=== PATIENT | male | born 1955 | race Caucasian/White ===

== ENCOUNTER 2020-07-30 14:30 | Inpatient (IN) | payer OTHER ==
[~2020-07-30] VITALS: Ht 177.8 cm; Wt 90.0 kg
[~2020-07-30 14:30] MED LIST: ATEN50TA41 PO; CHOL2000 PO; DOCU100T3 PO; LEVE100020 PO; LOVA10TA PO; MILK500C PO; MORP90CP PO; OXYC10TA6 PO
[2020-07-30] MEDS ORDERED: PLEASE ENTER HEIGHT AND WEIGHT MC SCH (15:00)
[2020-07-30] MEDS ORDERED: SODIUM CHLORIDE FLUSH 10ML SYR IVF ONE (15:00)
--- NOTE | 2020-07-30 15:11 | NUR ---
PT TRANSFERED FORM [facility] FROM EMS, ON 2 LPM O2 N/C. JAUNDICE FROM HEAD TO TOE, AND ABD DISTENDED, VSS, MED ALERT BRACLET INF GIVEN TO MD,
--- NOTE | 2020-07-30 15:17 | NUR ---
MED ALERT BRACLET STATES "TAKING OPIATES NO ANTIBICTICS EXCEPT PENICLLLIN THANK YOU " [phone]
[2020-07-30] MEDS ORDERED: SILD100T PO (15:22)
[2020-07-30] MEDS ORDERED: DOXE10CA PO (15:22)
[2020-07-30] MEDS ORDERED: OXYC10TA6 PO (15:22)
[2020-07-30] MEDS ORDERED: MORP-29 PO (15:22)
[2020-07-30] MEDS ORDERED: MELO15TA24 PO (15:22)
[2020-07-30] MEDS ORDERED: FLUT1BLS3 IH (15:23)
--- NOTE | 2020-07-30 15:33 | NUR ---
PT RESTING IN BED, SPOKE TO CURRY THE , SHE STATES SHE IS IN ROUTE, AND AWARE OF THE SITUATION
--- NOTE | 2020-07-30 15:38 | NUR ---
PRECEPTOR NOTE. PTS HOME MEDICATIONS WERE TAKEN TO PHARMACY AND DOUBLE VERIFIED WITH PHARMACIST. OXYCODONE COUNT WAS 71 WHOLE TABLETS AND 10 1/2 TABLETS. MORPHINE ER 18 WHOLE TABLETS. PT MADE AWARE MEDICATIONS ARE DOWN AT PHAMACY. RECIEPT LEFT WITH PT BELONGINGS.
[2020-07-30 15:43] LABS: MEAN CORPUSCULAR HEMOGLOBIN 35.9 pg (27.5-34.5); MEAN CORPUSCULAR HGB CONC 34.7 g/dL (33.2-36.2); MEAN PLATELET VOLUME 9.2 fL (7.4-10.4); PLATELET COUNT 113 x10^3/uL (130-400); RED BLOOD COUNT 4.22 x10^6/uL (4.38-5.82); RED CELL DISTRIBUTION WIDTH 16.2 % (9.4-14.8)
[2020-07-30] MEDS ORDERED: LIDOCAINE 1%, 10ML ONE (15:47)
[2020-07-30 15:48] LABS: ALANINE AMINOTRANSFERASE 75 U/L (12-78); ALBUMIN 2.2 g/dL (3.4-5.0); CALCIUM 8.3 mg/dL (8.5-10.1); CHLORIDE 90 mmol/L (98-107)
[2020-07-30 15:59] LABS: ALKALINE PHOSPHATASE 258 U/L (45-117)
[2020-07-30 16:02] LABS: INTERNATIONAL NORMALIZED RATIO 2.49 (0.93-1.1); PROTHROMBIN TIME 26.2 Seconds (9.6-11.5)
[2020-07-30 16:23] LABS: TOTAL PROTEIN 6.2 g/dL (6.4-8.2)
[2020-07-30 16:34] LABS: ANION GAP 15 mmol/L (5-15)
[2020-07-30 16:37] LABS: CREATININE 3.75 mg/dL (0.7-1.3)
[2020-07-30 16:40] LABS: BILIRUBIN,TOTAL 40.9 mg/dL (0.2-1.0)
--- NOTE | 2020-07-30 16:45 | NUR ---
PT BACK FROM CT
--- NOTE | 2020-07-30 16:49 | NUR ---
PRECEPTOR NOTE. IR NOTIFIED THIS RN THAT 4.7 LITERS WERE PULLED FROM PTS ABDOMEN AND SENT TO LAB. PRIMARY RN NOTIFIED.
[2020-07-30] MEDS ORDERED: NS + 40MEQ KCL 1,000 ML IV ONE (17:08)
[2020-07-30] MEDS ORDERED: MORPHINE SULFATE 4 MG/ML, 1ML ONE (17:08)
--- NOTE | 2020-07-30 17:29 | NUR ---
CONVERSATION WITH ADMITTING PROVIDER REGARDING PT NECKLACE THAT STATES NO ANTIBIOTICS EXCEPT PENICILLIN. PROVIDER SHOWN NECKLACE. CALLED TO CLARIFY ORDER OF ZOSYN WITH PROVIDER. PROVIDER SPOKE WITH TO CLARIFY. AT THIS POINT PROVIDER OK'D ZOSYN TO BE ADMIN
[2020-07-30] MEDS ORDERED: SODIUM CHLORIDE FLUSH 10ML SYR IVF PRN (17:30)
[2020-07-30] MEDS ORDERED: MORPHINE SULFATE 4 MG/ML, 1ML IVPush PRN (17:30)
--- NOTE | 2020-07-30 17:32 | NUR ---
pt in bed vss, no distress, iv k started
--- NOTE | 2020-07-30 17:36 | NUR ---
SPOKE WITH WARREN IN PHARMACY ON COMPATABILITY OF MEDS. PER WARREN THEY ARE COMPATIBLE
[2020-07-30] MEDS ORDERED: [UNRECOGNIZED DRUG - OTHER] IV SCH (18:00)
[2020-07-30] MEDS ORDERED: PROMETHAZINE 25 MG/ML, 1ML IM PRN (18:00)
[2020-07-30] MEDS ORDERED: HYDROmorphone 2 MG/ML, 1ML IVPush PRN (18:00)
[2020-07-30] MEDS ORDERED: ONDANSETRON 2MG/ML, 2ML IVPush PRN (18:00)
[2020-07-30] MEDS ORDERED: POTASSIUM CHLORIDE IV SCH (18:00)
[2020-07-30] MEDS ORDERED: MELATONIN 5 MG TABLET PO PRN (18:00)
[2020-07-30] MEDS ORDERED: BISACODYL 10 MG SUPP PR PRN (18:00)
[2020-07-30] MEDS ORDERED: POTASSIUM CHLORIDE 40 MEQ in SODIUM CHLORIDE 0.9% 1,000 ML IV ONE (18:00)
[2020-07-30] MEDS ORDERED: THIAMINE IV SCH (18:00)
[2020-07-30] MEDS ORDERED: POLYETHYLENE GLYCOL 17 GM PACKET PO PRN (18:00)
[2020-07-30] MEDS ORDERED: FOLIC ACID IV SCH (18:00)
[2020-07-30] MEDS ORDERED: DOCUSATE 100 MG CAPSULE PO PRN (18:00)
[2020-07-30] MEDS ORDERED: MVI ADULT IV SCH (18:00)
[2020-07-30 18:38] LABS: MD YES
[2020-07-30 18:42] LABS: BAND#(MANUAL) 2.21 x10^3/uL; BANDS%(MANUAL) 7 % (0-7); LYMPH#(MANUAL) 0.63 x10^3/uL (1-3.4); LYMPHS% (MANUAL) 2 % (22-44); MONOS#(MANUAL) 0.95 x10^3/uL (0.3-2.7); MONOS% (MANUAL) 3 % (2-9); SEG#(MANUAL) 27.81 x10^3/uL (1.8-6.8); SEGS% (MANUAL) 88 % (42-75)
[2020-07-30 18:46] LABS: <PLATELET ESTIMATE> DECREASED; <PLT MORPHOLOGY> NORMAL PLT MORPH; PMNS WITH VACUOLES 1+
[2020-07-30] MEDS: PIPERACILLIN/TAZO/PMX 2.25GM 50 ML IV SCH (19:03)
--- NOTE | 2020-07-30 19:24 | NUR ---
pt transfered to tele [phone]. report given to wally godinez. vss. no distress
[2020-07-30] MEDS ORDERED: ALBUMIN HUMAN 25% 100 ML IV ONE (19:30)
[2020-07-30] MEDS ORDERED: ALBUMIN HUMAN 25% 200 ML IV ONE (19:30)
[2020-07-30 19:42] VITALS: BP 111/67
[2020-07-30] MEDS: ALBUMIN HUMAN 25% 100 ML IV SCH (20:00)
[2020-07-30] MEDS: LACTULOSE 20 GM/30 ML UDC PO SCH ×2 (20:07→21:33)
[2020-07-30] MEDS: MIDODRINE 5 MG TABLET PO SCH (20:07)
[2020-07-30] MEDS: LEVETIRACETAM 500 MG TABLET PO SCH (20:07)
[2020-07-30] MEDS: LOVASTATIN 10 MG TABLET PO SCH (20:08)
[2020-07-30] MEDS: MULTIVITAMIN 1 TABLET PO SCH (20:08)
[2020-07-30] MEDS: OXYcodone IR 5MG TABLET PO PRN (20:08)
[2020-07-30] MEDS: RIFAXIMIN 550 MG TABLET PO SCH (20:09)
[2020-07-30 20:42] LABS: % IRON SATURATION 71 % (20-55); IRON LEVEL 70 mcg/dL (65-175); TOTAL IRON BINDING CAPACITY 98 mcg/dL (250-450)
[2020-07-30] MEDS: OCTREOTIDE 1,250 MCG in SODIUM CHLORIDE 0.9% 247.5 ML IV PRN (20:48)
[2020-07-30] MEDS ORDERED: DOXEPIN 10 MG CAPSULE PO SCH (21:00)
[2020-07-30] MEDS: D5 IV SCH (22:07)
[2020-07-30] MEDS: FOLIC ACID IV SCH (22:07)
[2020-07-30] MEDS: POTASSIUM CHLORIDE IV SCH (22:07)
[2020-07-30] MEDS: THIAMINE IV SCH (22:07)
[2020-07-30] MEDS: NACL IV SCH (22:07)
[2020-07-30 23:39] LABS: MICROSCOPIC AUTO
[2020-07-30 23:41] LABS: AMPHETAMINE SCREEN, URINE Negative (Negative); BARBITURATE SCREEN, URINE Negative (Negative); BENZODIAZEPINE SCREEN, URINE Negative (Negative); CANNABINOID SCREEN, URINE Negative (Negative); COCAINE SCREEN, URINE Negative (Negative); METHADONE SCREEN, URINE Negative (Negative); OPIATE SCREEN, URINE Positive (Negative); SODIUM,URINE RANDOM 6 mmol/L
[2020-07-31] MEDS: PIPERACILLIN/TAZO/PMX 2.25GM 50 ML IV SCH ×4 (01:39→20:39)
[2020-07-31 02:38] VITALS: BP 91/52
[2020-07-31] MEDS: ALBUMIN HUMAN 25% 100 ML IV SCH ×3 (05:38→17:14)
[2020-07-31] MEDS: OXYcodone IR 5MG TABLET PO PRN ×2 (05:44→17:06)
[2020-07-31 06:05] LABS: MEAN CORPUSCULAR HEMOGLOBIN 36.4 pg (27.5-34.5); MEAN CORPUSCULAR HGB CONC 34.8 g/dL (33.2-36.2); PLATELET COUNT 89 x10^3/uL (130-400); RED BLOOD COUNT 3.81 x10^6/uL (4.38-5.82)
[2020-07-31 06:15] LABS: ANION GAP 14 mmol/L (5-15); CALCIUM 7.4 mg/dL (8.5-10.1); CHLORIDE 95 mmol/L (98-107)
[2020-07-31 06:18] LABS: CREATININE 3.95 mg/dL (0.7-1.3)
[2020-07-31 06:43] LABS: MD YES
[2020-07-31 06:44] LABS: BAND#(MANUAL) 0.26 x10^3/uL; BANDS%(MANUAL) 1 % (0-7); LYMPH#(MANUAL) 1.03 x10^3/uL (1-3.4); LYMPHS% (MANUAL) 4 % (22-44); MONOS#(MANUAL) 1.03 x10^3/uL (0.3-2.7); MONOS% (MANUAL) 4 % (2-9); SEG#(MANUAL) 23.39 x10^3/uL (1.8-6.8); SEGS% (MANUAL) 91 % (42-75)
[2020-07-31 06:45] LABS: <PLATELET ESTIMATE> DECREASED; <PLT MORPHOLOGY> NORMAL PLT MORPH; ANISOCYTOSIS 1+
[2020-07-31 06:56] VITALS: BP 95/58
[2020-07-31] MEDS: LEVETIRACETAM 500 MG TABLET PO SCH ×2 (08:35→22:20)
[2020-07-31] MEDS: MULTIVITAMIN 1 TABLET PO SCH ×2 (08:35→22:16)
[2020-07-31] MEDS: LACTULOSE 20 GM/30 ML UDC PO SCH ×3 (08:35→22:20)
[2020-07-31] MEDS: RIFAXIMIN 550 MG TABLET PO SCH ×2 (08:35→22:16)
[2020-07-31] MEDS: MIDODRINE 5 MG TABLET PO SCH ×3 (08:36→22:16)
[2020-07-31] MEDS: CHOLECALCIFEROL 1,000 UNIT TABLET PO SCH (08:36)
[2020-07-31] MEDS: ATENOLOL 50 MG TABLET PO SCH (08:46)
[2020-07-31] MEDS: VILANTER INH SCH ×2 (09:00→15:36)
[2020-07-31] MEDS: FLUTICASONE INH SCH ×2 (09:00→15:36)
[2020-07-31] MEDS ORDERED: SENNA/DOCUSATE TABLET PO SCH (09:00)
[2020-07-31] MEDS: UMECLIDIN INH SCH ×2 (09:00→15:36)
[2020-07-31] MEDS ORDERED: POTASSIUM CHLORIDE 40 MEQ in SODIUM CHLORIDE 0.9% 500 ML IV ONE (11:00)
[2020-07-31 12:17] LABS: ALBUMIN 2.4 g/dL (3.4-5.0)
[2020-07-31 12:28] LABS: ALKALINE PHOSPHATASE 236 U/L (45-117)
[2020-07-31 12:52] VITALS: BP 107/66
[2020-07-31 13:19] LABS: ALANINE AMINOTRANSFERASE 65 U/L (12-78); TOTAL PROTEIN 5.5 g/dL (6.4-8.2)
[2020-07-31] MEDS: POTASSIUM CHLORIDE 20 MEQ TAB.ER.PRT PO SCH (16:56)
[2020-07-31 19:38] VITALS: BP 119/73
[2020-07-31 21:05] LABS: OCCULT BLOOD POSITIVE (NEGATIVE)
[2020-07-31] MEDS: LOVASTATIN 10 MG TABLET PO SCH (22:15)
[2020-07-31] MEDS: NACL IV SCH (22:17)
[2020-07-31] MEDS: FOLIC ACID IV SCH (22:17)
[2020-07-31] MEDS: THIAMINE IV SCH (22:17)
[2020-07-31] MEDS: D5 IV SCH (22:17)
[2020-07-31] MEDS: POTASSIUM CHLORIDE IV SCH (22:17)
[2020-07-31] MEDS: OCTREOTIDE 1,250 MCG in SODIUM CHLORIDE 0.9% 247.5 ML IV PRN (22:18)
[2020-07-31 23:39] LABS: OCCULT BLOOD POSITIVE (NEGATIVE)
[2020-08-01] MEDS: ALBUMIN HUMAN 25% 100 ML IV SCH ×4 (01:54→19:17)
[2020-08-01] MEDS: PIPERACILLIN/TAZO/PMX 2.25GM 50 ML IV SCH ×4 (01:54→21:29)
[2020-08-01 02:00] VITALS: BP 113/66
[2020-08-01] MEDS: OXYcodone IR 5MG TABLET PO PRN ×2 (02:32→16:29)
[2020-08-01 06:26] LABS: CHLORIDE 98 mmol/L (98-107); MEAN CORPUSCULAR HEMOGLOBIN 36.4 pg (27.5-34.5); MEAN CORPUSCULAR HGB CONC 34.8 g/dL (33.2-36.2); MEAN PLATELET VOLUME 9.9 fL (7.4-10.4); PLATELET COUNT 77 x10^3/uL (130-400); RED BLOOD COUNT 3.58 x10^6/uL (4.38-5.82); RED CELL DISTRIBUTION WIDTH 16.2 % (9.4-14.8)
[2020-08-01 06:45] LABS: ALANINE AMINOTRANSFERASE 55 U/L (12-78); ALBUMIN 2.7 g/dL (3.4-5.0); ALKALINE PHOSPHATASE 192 U/L (45-117); ANION GAP 13 mmol/L (5-15); CALCIUM 7.2 mg/dL (8.5-10.1)
[2020-08-01 06:48] LABS: CREATININE 4.67 mg/dL (0.7-1.3); TOTAL PROTEIN 5.2 g/dL (6.4-8.2)
[2020-08-01 07:25] LABS: MD YES
[2020-08-01 07:27] LABS: <PLATELET ESTIMATE> DECREASED; <PLT MORPHOLOGY> NORMAL PLT MORPH; ANISOCYTOSIS 1+; BAND#(MANUAL) 1.81 x10^3/uL; BANDS%(MANUAL) 7 % (0-7); LYMPH#(MANUAL) 0.26 x10^3/uL (1-3.4); LYMPHS% (MANUAL) 1 % (22-44); MONOS#(MANUAL) 0.52 x10^3/uL (0.3-2.7); MONOS% (MANUAL) 2 % (2-9); SEG#(MANUAL) 23.31 x10^3/uL (1.8-6.8); SEGS% (MANUAL) 90 % (42-75)
[2020-08-01] MEDS: POTASSIUM CHLORIDE 20 MEQ TAB.ER.PRT PO SCH ×3 (08:00→16:21)
[2020-08-01] MEDS: MULTIVITAMIN 1 TABLET PO SCH ×2 (08:11→20:13)
[2020-08-01] MEDS: RIFAXIMIN 550 MG TABLET PO SCH ×2 (08:12→20:15)
[2020-08-01] MEDS: MIDODRINE 5 MG TABLET PO SCH ×3 (08:12→20:13)
[2020-08-01] MEDS: CHOLECALCIFEROL 1,000 UNIT TABLET PO SCH (08:12)
[2020-08-01] MEDS: LACTULOSE 20 GM/30 ML UDC PO SCH ×3 (08:12→20:13)
[2020-08-01 08:29] VITALS: BP 127/65
[2020-08-01] MEDS: LEVETIRACETAM 500 MG TABLET PO SCH ×2 (08:31→20:13)
[2020-08-01] MEDS: ATENOLOL 50 MG TABLET PO SCH (09:00)
[2020-08-01] MEDS: UMECLIDIN INH SCH (09:00)
[2020-08-01] MEDS: FLUTICASONE INH SCH (09:00)
[2020-08-01] MEDS: VILANTER INH SCH (09:00)
[2020-08-01] MEDS ORDERED: LIDOCAINE 1%, 10ML ONE (12:37)
[2020-08-01 16:18] VITALS: BP 128/67
[2020-08-01 19:35] VITALS: BP 117/64
[2020-08-01] MEDS: LOVASTATIN 10 MG TABLET PO SCH (20:13)
[2020-08-01] MEDS: NACL IV SCH (21:29)
[2020-08-01] MEDS: FOLIC ACID IV SCH (21:29)
[2020-08-01] MEDS: THIAMINE IV SCH (21:29)
[2020-08-01] MEDS: D5 IV SCH (21:29)
[2020-08-01] MEDS: POTASSIUM CHLORIDE IV SCH (21:29)
[2020-08-02] VITALS: BP 100/52
[2020-08-02] MEDS: ALBUMIN HUMAN 25% 100 ML IV SCH ×4 (01:47→19:37)
[2020-08-02] MEDS: OCTREOTIDE 1,250 MCG in SODIUM CHLORIDE 0.9% 247.5 ML IV PRN (02:34)
[2020-08-02] MEDS: PIPERACILLIN/TAZO/PMX 2.25GM 50 ML IV SCH ×3 (05:28→21:12)
[2020-08-02 05:54] LABS: MEAN CORPUSCULAR HEMOGLOBIN 36.4 pg (27.5-34.5); MEAN CORPUSCULAR HGB CONC 33.9 g/dL (33.2-36.2); PLATELET COUNT 74 x10^3/uL (130-400); RED BLOOD COUNT 3.46 x10^6/uL (4.38-5.82); RED CELL DISTRIBUTION WIDTH 15.9 % (9.4-14.8)
[2020-08-02 06:05] LABS: ALBUMIN 2.9 g/dL (3.4-5.0); ANION GAP 9 mmol/L (5-15); CALCIUM 6.7 mg/dL (8.5-10.1); CHLORIDE 100 mmol/L (98-107)
[2020-08-02 06:20] LABS: ALANINE AMINOTRANSFERASE 45 U/L (12-78); ALKALINE PHOSPHATASE 164 U/L (45-117)
[2020-08-02 06:33] VITALS: BP 108/55
[2020-08-02 06:53] LABS: BILIRUBIN,TOTAL 37.9 mg/dL (0.2-1.0); CREATININE 4.99 mg/dL (0.7-1.3)
[2020-08-02 08:05] LABS: MD YES
[2020-08-02 08:07] LABS: ANISOCYTOSIS 1+; BAND#(MANUAL) 0.44 x10^3/uL; BANDS%(MANUAL) 2 % (0-7); EOS#(MANUAL) 0.22 x10^3/uL (0.0-0.4); EOS% (MANUAL) 1 % (1-7); LYMPH#(MANUAL) 0.66 x10^3/uL (1-3.4); LYMPHS% (MANUAL) 3 % (22-44); METAMYELOCYTES# (MANUAL) 0.22 x10^3/uL (0-0); METAMYELOCYTES% (MANUAL) 1 % (0-1); MONOS#(MANUAL) 0.88 x10^3/uL (0.3-2.7); MONOS% (MANUAL) 4 % (2-9); MYELOCYTES# (MANUAL) 0.22 x10^3/uL (0-0); MYELOCYTES% (MANUAL) 1 % (0-0); SEG#(MANUAL) 19.45 x10^3/uL (1.8-6.8); SEGS% (MANUAL) 88 % (42-75)
[2020-08-02 08:08] LABS: <PLATELET ESTIMATE> DECREASED; <PLT MORPHOLOGY> NORMAL PLT MORPH
[2020-08-02] MEDS: POTASSIUM CHLORIDE 20 MEQ TAB.ER.PRT PO SCH ×2 (09:09→17:21)
[2020-08-02] MEDS: MULTIVITAMIN 1 TABLET PO SCH ×2 (09:09→21:14)
[2020-08-02] MEDS: LEVETIRACETAM 500 MG TABLET PO SCH ×2 (09:10→21:14)
[2020-08-02] MEDS: CHOLECALCIFEROL 1,000 UNIT TABLET PO SCH (09:11)
[2020-08-02] MEDS: VILANTER INH SCH (09:11)
[2020-08-02] MEDS: FLUTICASONE INH SCH (09:11)
[2020-08-02] MEDS: MIDODRINE 5 MG TABLET PO SCH ×3 (09:11→21:12)
[2020-08-02] MEDS: UMECLIDIN INH SCH (09:11)
[2020-08-02] MEDS: RIFAXIMIN 550 MG TABLET PO SCH ×2 (09:11→21:12)
[2020-08-02] MEDS: LACTULOSE 20 GM/30 ML UDC PO SCH ×3 (09:11→20:38)
[2020-08-02 12:46] VITALS: BP 95/52
[2020-08-02] MEDS ORDERED: SODIUM PHOSPHATE 20 MMOL in SODIUM CHLORIDE 0.9% 500 ML IV ONE (16:00)
[2020-08-02] MEDS ORDERED: PHYTONADIONE 10 MG/ML, 1ML SQ ONE (17:00)
[2020-08-02] MEDS: SODIUM CHLORIDE 1 GM TABLET PO SCH ×2 (17:22→21:12)
[2020-08-02 18:53] VITALS: BP 118/60
[2020-08-02] MEDS: D5 IV SCH (21:12)
[2020-08-02] MEDS: POTASSIUM CHLORIDE IV SCH (21:12)
[2020-08-02] MEDS: THIAMINE IV SCH (21:12)
[2020-08-02] MEDS: NACL IV SCH (21:12)
[2020-08-02] MEDS: LOVASTATIN 10 MG TABLET PO SCH (21:12)
[2020-08-02] MEDS: FOLIC ACID IV SCH (21:12)
[2020-08-03] VITALS (8 sets, daily range): BP systolic 78–124; BP diastolic 43–79
[2020-08-03] MEDS: ALBUMIN HUMAN 25% 100 ML IV SCH ×4 (01:44→19:45)
[2020-08-03] MEDS: OCTREOTIDE 1,250 MCG in SODIUM CHLORIDE 0.9% 247.5 ML IV PRN (03:44)
[2020-08-03] MEDS: PIPERACILLIN/TAZO/PMX 2.25GM 50 ML IV SCH ×3 (05:08→21:40)
[2020-08-03] MEDS ORDERED: DILTIAZEM 5 MG/ML, 5ML ONE (05:42)
[2020-08-03] MEDS ORDERED: ATENOLOL 50 MG TABLET ONE (05:42)
[2020-08-03] MEDS: ATENOLOL 50 MG TABLET PO SCH (05:48)
[2020-08-03] MEDS ORDERED: DILTIAZEM 5 MG/ML, 5ML IVPush ONE ×2 (06:00→07:00)
[2020-08-03 06:17] LABS: MEAN CORPUSCULAR HEMOGLOBIN 36.6 pg (27.5-34.5); MEAN CORPUSCULAR HGB CONC 34.1 g/dL (33.2-36.2); MEAN PLATELET VOLUME 10.1 fL (7.4-10.4); PLATELET COUNT 80 x10^3/uL (130-400); RED BLOOD COUNT 3.54 x10^6/uL (4.38-5.82); RED CELL DISTRIBUTION WIDTH 15.7 % (9.4-14.8)
[2020-08-03 06:24] LABS: ANION GAP 13 mmol/L (5-15); CALCIUM 6.9 mg/dL (8.5-10.1); CHLORIDE 105 mmol/L (98-107); INTERNATIONAL NORMALIZED RATIO 2.51 (0.93-1.1); PROTHROMBIN TIME 26.4 Seconds (9.6-11.5)
[2020-08-03 06:27] LABS: CREATININE 5.74 mg/dL (0.7-1.3)
[2020-08-03 07:05] LABS: MD YES
[2020-08-03 07:06] LABS: BAND#(MANUAL) 1.79 x10^3/uL; BANDS%(MANUAL) 7 % (0-7); EOS#(MANUAL) 0.26 x10^3/uL (0.0-0.4); EOS% (MANUAL) 1 % (1-7); LYMPH#(MANUAL) 2.04 x10^3/uL (1-3.4); LYMPHS% (MANUAL) 8 % (22-44); MONOS#(MANUAL) 1.02 x10^3/uL (0.3-2.7); MONOS% (MANUAL) 4 % (2-9); MYELOCYTES# (MANUAL) 0.77 x10^3/uL (0-0); MYELOCYTES% (MANUAL) 3 % (0-0); SEG#(MANUAL) 19.64 x10^3/uL (1.8-6.8); SEGS% (MANUAL) 77 % (42-75)
[2020-08-03 07:07] LABS: <PLATELET ESTIMATE> DECREASED; ANISOCYTOSIS 1+; LARGE PLATELETS 1+
[2020-08-03] MEDS: LACTULOSE 20 GM/30 ML UDC PO SCH ×3 (08:22→20:06)
[2020-08-03] MEDS: MULTIVITAMIN 1 TABLET PO SCH ×2 (08:30→20:05)
[2020-08-03] MEDS: SODIUM CHLORIDE 1 GM TABLET PO SCH ×2 (08:30→16:41)
[2020-08-03] MEDS: RIFAXIMIN 550 MG TABLET PO SCH ×2 (08:30→20:06)
[2020-08-03] MEDS: MIDODRINE 5 MG TABLET PO SCH ×3 (08:30→20:07)
[2020-08-03] MEDS: LEVETIRACETAM 500 MG TABLET PO SCH ×2 (08:31→20:06)
[2020-08-03] MEDS: FLUTICASONE INH SCH (08:31)
[2020-08-03] MEDS: UMECLIDIN INH SCH (08:31)
[2020-08-03] MEDS: VILANTER INH SCH (08:31)
[2020-08-03] MEDS: CHOLECALCIFEROL 1,000 UNIT TABLET PO SCH (08:31)
[2020-08-03] MEDS ORDERED: PHYTONADIONE 5 MG TABLET PO ONE (09:00)
[2020-08-03 15:41] LABS: ANA SCREEN NEGATIVE (Negative)
[2020-08-03] MEDS ORDERED: PHYTONADIONE 5 MG TABLET PO SCH (17:00)
[2020-08-03] MEDS: LOVASTATIN 10 MG TABLET PO SCH (20:06)
[2020-08-04] VITALS (9 sets, daily range): BP systolic 104–123; BP diastolic 57–79
[2020-08-04] MEDS: ALBUMIN HUMAN 25% 100 ML IV SCH ×3 (01:23→18:45)
[2020-08-04] MEDS: ATENOLOL 50 MG TABLET PO SCH (05:14)
[2020-08-04] MEDS: PIPERACILLIN/TAZO/PMX 2.25GM 50 ML IV SCH ×2 (05:14→19:35)
[2020-08-04 05:34] LABS: INTERNATIONAL NORMALIZED RATIO 2.27 (0.93-1.1); PROTHROMBIN TIME 23.9 Seconds (9.6-11.5)
[2020-08-04] MEDS: OCTREOTIDE 1,250 MCG in SODIUM CHLORIDE 0.9% 247.5 ML IV PRN (06:03)
[2020-08-04] MEDS: FLUTICASONE INH SCH (08:39)
[2020-08-04] MEDS: UMECLIDIN INH SCH (08:39)
[2020-08-04] MEDS: VILANTER INH SCH (08:39)
[2020-08-04] MEDS: MIDODRINE 5 MG TABLET PO SCH ×3 (08:40→21:09)
[2020-08-04] MEDS: LEVETIRACETAM 500 MG TABLET PO SCH ×2 (08:41→21:08)
[2020-08-04] MEDS: CHOLECALCIFEROL 1,000 UNIT TABLET PO SCH (08:41)
[2020-08-04] MEDS: RIFAXIMIN 550 MG TABLET PO SCH ×2 (08:41→21:08)
[2020-08-04] MEDS: MULTIVITAMIN 1 TABLET PO SCH ×2 (08:41→21:08)
[2020-08-04] MEDS: LACTULOSE 20 GM/30 ML UDC PO SCH ×3 (08:56→21:08)
[2020-08-04] MEDS ORDERED: LIDOCAINE 1%, 20ML ONE (15:52)
[2020-08-04] MEDS ORDERED: NALOXONE 1 MG/ML, 2ML ONE (15:53)
[2020-08-04] MEDS ORDERED: FLUMAZENIL 0.1 MG/1 ML, 5ML ONE (15:53)
[2020-08-04] MEDS ORDERED: FENTANYL PF 100 MCG/2ML ONE (15:53)
[2020-08-04] MEDS ORDERED: MIDAZOLAM 1 MG/ML, 5ML ONE (15:53)
[2020-08-04] MEDS: LOVASTATIN 10 MG TABLET PO SCH (21:08)
[2020-08-05] MEDS: ALBUMIN HUMAN 25% 100 ML IV SCH ×2 (00:32→06:13)
[2020-08-05 01:26] VITALS: BP 111/83
[2020-08-05] MEDS: PIPERACILLIN/TAZO/PMX 2.25GM 50 ML IV SCH ×2 (02:39→11:30)
[2020-08-05] MEDS: ATENOLOL 50 MG TABLET PO SCH (06:13)
[2020-08-05 06:54] VITALS: BP 106/66
[2020-08-05] MEDS: UMECLIDIN INH SCH (09:00)
[2020-08-05] MEDS: FLUTICASONE INH SCH (09:00)
[2020-08-05] MEDS: VILANTER INH SCH (09:00)
[2020-08-05] MEDS: LACTULOSE 20 GM/30 ML UDC PO SCH ×2 (09:00→10:28)
[2020-08-05] MEDS: LEVETIRACETAM 500 MG TABLET PO SCH (10:28)
[2020-08-05] MEDS: MIDODRINE 5 MG TABLET PO SCH (10:29)
[2020-08-05] MEDS: RIFAXIMIN 550 MG TABLET PO SCH (10:29)
[2020-08-05] MEDS: MULTIVITAMIN 1 TABLET PO SCH (10:29)
[2020-08-05] MEDS: CHOLECALCIFEROL 1,000 UNIT TABLET PO SCH (10:29)
[2020-08-05 13:10] VITALS: BP 112/69
== END 2020-08-05 14:50 | disposition hospice, home (50) | DRG 871 ==
LOC: ED 18:20 → EDIP 18:33 → 4WST 19:29
PROVIDERS: ADMIT Hospitalist; ATTEND Hospitalist
PROC: 0W9G3ZZ Drainage of Peritoneal Cavity, Percutaneous Approach (ICD-10-PCS; 2020-07-30)
PROC: 30233K1 Transfusion of Nonautologous Frozen Plasma into Peripheral Vein, Percutaneous Approach (ICD-10-PCS; principal; 2020-08-04)
DX: A41.9 Sepsis, unspecified organism (principal); E43 Unspecified severe protein-calorie malnutrition; G93.41 Metabolic encephalopathy; K76.7 Hepatorenal syndrome; K85.20 Alcohol induced acute pancreatitis without necrosis or infection; E87.1 Hypo-osmolality and hyponatremia; D68.9 Coagulation defect, unspecified; K76.6 Portal hypertension; N17.9 Acute kidney failure, unspecified; N39.0 Urinary tract infection, site not specified; D64.9 Anemia, unspecified; D69.6 Thrombocytopenia, unspecified; D75.89 Other specified diseases of blood and blood-forming organs; Z68.28 Body mass index [BMI] 28.0-28.9, adult; Z51.5 Encounter for palliative care; Z66 Do not resuscitate; E87.6 Hypokalemia; F10.10 Alcohol abuse, uncomplicated; G43.909 Migraine, unspecified, not intractable, without status migrainosus; G89.29 Other chronic pain; I48.91 Unspecified atrial fibrillation; J44.9 Chronic obstructive pulmonary disease, unspecified; K70.31 Alcoholic cirrhosis of liver with ascites; K72.90 Hepatic failure, unspecified without coma; Z79.01 Long term (current) use of anticoagulants
CPT/HCPCS: 36415; 82042; 89051; 96374; 96375; 99291; J3490; J7042; 49083; 49418; 76700; 80048; 80053; 80074; 80307; 80320; 81001; 82105; 82140; 82180; 82272; 82306; 82607; 82728; 82784; 83516; 83540; 83550; 83615; 83690; 83735; 83880; 84100; 84207; 84252; 84300; 84425; 85025; 85610; 85730; 86038; 86706; 86708; 86850; 86900; 87040; 87070; 87086; 87205; 93005; 99156; 99157; G0378; J2250; J2354; J2543; J2550; J3010; J3411; J3430; J3480; P9047; C1729; G0480; J2270; J2310; J7030; J7040; J7050; P9017